=== PATIENT | male | born 1965 | race Caucasian/White ===

== ENCOUNTER 2020-10-02 15:40 | Inpatient (IN) | payer BC, OTHER ==
[~2020-10-02] VITALS: Ht 182.9 cm; Wt 68.5 kg
[~2020-10-02 15:40] MED LIST: EZET10TA PO; GLYB5TAB7 PO; JANUVIA; METF-379 PO
[2020-10-02 15:49] VITALS: BP_SYST 194
[2020-10-02] MEDS ORDERED: MAG-AL HYDROX/SIMETH 30 ML UDC PO ONE (16:15)
[2020-10-02] MEDS ORDERED: LORazepam 1 MG TABLET PO ONE (16:15)
[2020-10-02] MEDS ORDERED: PANTOPRAZOLE SODIUM 40 MG/VIAL (PROTONIX) IVP ONE ×2 (16:15→19:00)
[2020-10-02] MEDS ORDERED: NACL 0.9% 1,000 ML IV ONE ×2 (16:30→17:30)
[2020-10-02 16:46] LABS: BASOPHILS % (AUTO) 0.3 % (0.0-2.0); HEMATOCRIT 52.6 % (36-54); HEMOGLOBIN 17.5 g/dL (14.0-18.0); LYMPHOCYTES # (AUTO) 1.1 K/uL (1.0-5.5); LYMPHOCYTES % (AUTO) 6.7 % (20.5-51.5); MEAN CORPUSCULAR HEMOGLOBIN 31 pg (27-31); MEAN CORPUSCULAR HGB CONC 33 % (32-36); MEAN CORPUSCULAR VOLUME 94 fL (79.0-98.0); MONOCYTES # (AUTO) 1.1 K/uL (0.0-1.0); MONOCYTES % (AUTO) 7.1 % (1.7-9.3); NEUTROPHILS # (AUTO) 13.6 K/uL (1.8-7.7); NEUTROPHILS % (AUTO) 85.9 % (40.0-70.0); PLATELET COUNT (AUTO) 361 K/uL (130-430); RED CELL DISTRIBUTION WIDTH 12.6 % (9.0-15.0); WHITE BLOOD COUNT (AUTO) 15.9 K/uL (4.8-10.8)
[2020-10-02 17:02] LABS: ANION GAP 30 (5-15); CALCIUM 9.7 mg/dL (8.4-11.0); CHLORIDE 94 mmol/L (98-107); CREATININE 1.53 mg/dL (0.55-1.30); GLUCOSE 214 mg/dL (70-99); POTASSIUM 5.4 mmol/L (3.5-5.1); SODIUM SERUM 133 mmol/L (136-145); UREA NITROGEN, BLOOD 20 mg/dL (8-21)
[2020-10-02 17:04] LABS: INR 0.9 (0.80-1.20); PROTHROMBIN TIME 9.5 SECS (9.5-12.5)
[2020-10-02 17:08] LABS: ALANINE AMINOTRANSFERASE 26 U/L (12-78); ALBUMIN 4.9 g/dL (3.4-4.8); ASPARTATE AMINOTRANSFERASE 11 U/L (10-37); TOTAL BILIRUBIN 0.8 mg/dL (0.0-1.0)
[2020-10-02 17:18] LABS: GFR AFRICAN AMERICAN 62 mL/min (>90)
[2020-10-02 17:21] LABS: C-REACTIVE PROTEIN QUANT < 0.2 mg/dL (0-0.5)
[2020-10-02] MEDS ORDERED: INSULIN REGULAR, HUMAN 10 UNITS/0.1 ML INJ IVP ONE (17:30)
[2020-10-02] MEDS ORDERED: CANA1TAB4 PO (17:30)
[2020-10-02] MEDS ORDERED: INSULIN REGULAR, HUMAN 100 UNITS in NS 99 ML IV ONE ×2 (18:15)
[2020-10-02] MEDS ORDERED: NACL 0.9% 1,000 ML IV SCH (18:15)
[2020-10-02] MEDS ORDERED: LORazepam 2 MG/ML VIAL IVP PRN (18:45)
[2020-10-02] MEDS ORDERED: DEXTROSE 50% JECT 50 ML DISP.SYRIN IVP PRN (18:45)
[2020-10-02] MEDS ORDERED: FOLIC ACID 1 MG, THIAMINE HCL 100 MG, MAGNESIUM SULFATE 1 GM, MVI 10 ML in NACL 0.9% 1,... IV ONE (18:45)
[2020-10-02] MEDS ORDERED: INSULIN REGULAR, HUMAN 100 UNITS in NS 99 ML IV PRN ×2 (18:45)
[2020-10-02 18:48] LABS: ACETONE, SERUM SMALL (NEGATIVE)
[2020-10-02] MEDS ORDERED: THIAMINE HCL 100 MG, MAGNESIUM SULFATE 1 GM in NS 100 ML IV ONE (19:00)
[2020-10-02] MEDS ORDERED: FOLIC ACID 1 MG, MVI 10 ML in NACL 0.9% 1,000 ML IV ONE (19:00)
[2020-10-02 19:49] LABS: BARBITURATE, URINE NEGATIVE (NEG <=200); BENZODIAZEPINE, URINE NEGATIVE (NEG <=150); CANNABINOID, URINE POSITIVE (NEG <=50); COCAINE, URINE NEGATIVE (NEG <=150); METHAMPHETAMINES SCREEN,URINE NEGATIVE (NEG <=500); OPIATE, URINE NEGATIVE (NEG <=100); PHENCYCLIDINE SCREEN,URINE NEGATIVE (NEG <=25); UR TRICYCLIC ANTIDEPRESSANTS NEGATIVE (NEG <=300); URINE AMPHETAMINE NEGATIVE (NEG <=500); URINE METHADONE NEGATIVE (NEG <=200); URINE OXYCODONE SCREEN NEGATIVE (NEG <=100); URINE PROPOXYPHENE SCREEN NEGATIVE (NEG <=300)
[2020-10-02 19:55] VITALS: BP_SYST 155
[2020-10-02 20:00] VITALS: BP_SYST 155
[2020-10-02 21:00] VITALS: BP_SYST 154
[2020-10-02] MEDS ORDERED: cefTRIAXone 1 GM IVPB PREMIX 50 ML IV ONE (21:43)
[2020-10-02 22:00] VITALS: BP_SYST 147
[2020-10-02 22:24] LABS: CALCIUM 7.2 mg/dL (8.4-11.0); CREATININE 1.19 mg/dL (0.55-1.30); POTASSIUM 4.8 mmol/L (3.5-5.1)
[2020-10-02] MEDS: cefTRIAXone 1 GM in D5W 50 ML IV SCH (22:29)
[2020-10-02 23:00] VITALS: BP_SYST 140
[2020-10-03] VITALS (16 sets, daily range): BP systolic 109–138
[2020-10-03] MEDS: SODIUM BICARBONATE 650 MG TABLET PO SCH ×5 (00:09→20:38)
[2020-10-03] MEDS: D5LR 1,000 ML IV SCH ×3 (00:58→13:46)
[2020-10-03] MEDS: INSULIN REGULAR, HUMAN 100 UNITS/ML, 10 ML VIAL (humuLIN R) SUBCUT PRN ×5 (03:09→18:15)
[2020-10-03 05:56] LABS: ALBUMIN 3.4 g/dL (3.4-4.8); BASOPHILS % (AUTO) 0.2 % (0.0-2.0); CALCIUM 7.8 mg/dL (8.4-11.0); CREATININE 1.12 mg/dL (0.55-1.30); EOSINOPHILS % (AUTO) 0.4 % (0.0-4.0); HEMATOCRIT 40.7 % (36-54); HEMOGLOBIN 13.8 g/dL (14.0-18.0); LYMPHOCYTES # (AUTO) 2.3 K/uL (1.0-5.5); LYMPHOCYTES % (AUTO) 23.2 % (20.5-51.5); MEAN CORPUSCULAR HEMOGLOBIN 31 pg (27-31); MEAN CORPUSCULAR HGB CONC 34 % (32-36); MEAN CORPUSCULAR VOLUME 92 fL (79.0-98.0); MONOCYTES # (AUTO) 1.3 K/uL (0.0-1.0); MONOCYTES % (AUTO) 13.5 % (1.7-9.3); NEUTROPHILS # (AUTO) 6.3 K/uL (1.8-7.7); NEUTROPHILS % (AUTO) 62.7 % (40.0-70.0); PHOSPHORUS 1.5 mg/dL (2.7-4.5); PLATELET COUNT (AUTO) 232 K/uL (130-430); POTASSIUM 3.8 mmol/L (3.5-5.1); RED BLOOD CELL COUNT(AUTO) 4.44 MIL/uL (4.2-6.2); RED CELL DISTRIBUTION WIDTH 12.5 % (9.0-15.0); TOTAL BILIRUBIN 0.9 mg/dL (0.0-1.0)
[2020-10-03] MEDS: THIAMINE HCL 100 MG TABLET PO SCH (08:20)
[2020-10-03] MEDS: PANTOPRAZOLE SODIUM 40 MG/VIAL (PROTONIX) IVP SCH ×2 (08:20→20:37)
[2020-10-03] MEDS: FOLIC ACID 1 MG TABLET PO SCH (08:20)
[2020-10-03] MEDS ORDERED: SODIUM BICARBONATE 650 MG TABLET PO ONE (09:45)
[2020-10-03] MEDS ORDERED: cefTRIAXone 1 GM VIAL ONE (20:17)
[2020-10-03] MEDS: cefTRIAXone 1 GM in D5W 50 ML IV SCH (20:39)
[2020-10-04 00:05] VITALS: BP_SYST 127
[2020-10-04] MEDS: D5LR 1,000 ML IV SCH (05:34)
[2020-10-04 06:27] LABS: ALBUMIN 3.1 g/dL (3.4-4.8); BASOPHILS % (AUTO) 0.2 % (0.0-2.0); CALCIUM 7.9 mg/dL (8.4-11.0); CREATININE 0.85 mg/dL (0.55-1.30); EOSINOPHILS # (AUTO) 0.2 K/uL (0.0-0.4); EOSINOPHILS % (AUTO) 2.4 % (0.0-4.0); HEMATOCRIT 38.3 % (36-54); HEMOGLOBIN 13.1 g/dL (14.0-18.0); LYMPHOCYTES # (AUTO) 2.1 K/uL (1.0-5.5); LYMPHOCYTES % (AUTO) 30.3 % (20.5-51.5); MEAN CORPUSCULAR HEMOGLOBIN 31 pg (27-31); MEAN CORPUSCULAR HGB CONC 34 % (32-36); MEAN CORPUSCULAR VOLUME 91 fL (79.0-98.0); MONOCYTES # (AUTO) 0.8 K/uL (0.0-1.0); MONOCYTES % (AUTO) 11.2 % (1.7-9.3); NEUTROPHILS # (AUTO) 3.8 K/uL (1.8-7.7); NEUTROPHILS % (AUTO) 55.9 % (40.0-70.0); PHOSPHORUS 1.6 mg/dL (2.7-4.5); PLATELET COUNT (AUTO) 203 K/uL (130-430); POTASSIUM 3.2 mmol/L (3.5-5.1); RED BLOOD CELL COUNT(AUTO) 4.23 MIL/uL (4.2-6.2); RED CELL DISTRIBUTION WIDTH 12.2 % (9.0-15.0); TOTAL BILIRUBIN 0.8 mg/dL (0.0-1.0); WHITE BLOOD COUNT (AUTO) 6.8 K/uL (4.8-10.8)
[2020-10-04 08:00] VITALS: BP_SYST 140
[2020-10-04] MEDS: SODIUM BICARBONATE 650 MG TABLET PO SCH (09:20)
[2020-10-04] MEDS: PANTOPRAZOLE SODIUM 40 MG/VIAL (PROTONIX) IVP SCH (09:21)
[2020-10-04] MEDS: FOLIC ACID 1 MG TABLET PO SCH (09:21)
[2020-10-04] MEDS: THIAMINE HCL 100 MG TABLET PO SCH (09:31)
[2020-10-04] MEDS ORDERED: NATEGLINIDE 120 MG TABLET PO SCH (11:30)
[2020-10-04] MEDS ORDERED: NATEGLINIDE 60 MG TABLET PO SCH (11:30)
[2020-10-04] MEDS ORDERED: FOLI-43 PO (11:41)
[2020-10-04] MEDS ORDERED: THIA50TA10 PO (11:41)
[2020-10-04] MEDS ORDERED: STA60 PO (11:43)
[2020-10-04] MEDS ORDERED: POTASSIUM CHLORIDE 20 MEQ TAB.PRT.SR PO ONE (11:45)
[2020-10-04 12:00] VITALS: BP_SYST 142
[2020-10-04] MEDS ORDERED: NATEGLINIDE 120 MG TABLET ONE (12:05)
[2020-10-04] MEDS ORDERED: PRO40 PO (12:48)
== END 2020-10-04 15:45 | disposition home or self-care (01) | DRG 637 ==
LOC: SED 15:40 → SIC 18:12 → STU 10-03 16:15
PROVIDERS: ADMIT Internal Medicine; ATTEND Internal Medicine
DX: E11.10 Type 2 diabetes mellitus with ketoacidosis without coma (principal); N17.0 Acute kidney failure with tubular necrosis; E87.2 Acidosis; R65.10 Systemic inflammatory response syndrome (SIRS) of non-infectious origin without acute organ dysfunction; E44.1 Mild protein-calorie malnutrition; Z20.822 Contact with and (suspected) exposure to COVID-19; F12.90 Cannabis use, unspecified, uncomplicated; F32.9 Major depressive disorder, single episode, unspecified; F10.20 Alcohol dependence, uncomplicated; E87.6 Hypokalemia; F43.23 Adjustment disorder with mixed anxiety and depressed mood; Z79.899 Other long term (current) drug therapy; Z81.8 Family history of other mental and behavioral disorders; Z68.20 Body mass index [BMI] 20.0-20.9, adult
CPT/HCPCS: 36415; 36600; 71045; 80048; 80053; 80307; 82009; 82140; 82550; 82803-TC; 82962; 83605; 83735; 83880; 84100; 84484; 85025; 85379; 85610-TC; 85730-TC; 86140; 86403; 87040-TC; 87081; 93005; 96374; 96375; 99285; C9113; G0378; J0696; J1815; J3411; J3475; J3490; J7030; J7120

== ENCOUNTER 2021-04-26 09:48 | Inpatient (IN) | payer OTHER, SELFPAY ==
[~2021-04-26] VITALS: Ht 180.3 cm; Wt 75.7 kg
[~2021-04-26 09:48] MED LIST changes: -EZET10TA PO; +FOLI-43 PO; -GLYB5TAB7 PO; -JANUVIA; -METF-379 PO; +PRO40 PO; +STA60 PO; +THIA50TA10 PO
[2021-04-26 10:06] VITALS: BP_SYST 157
--- NOTE | 2021-04-26 10:09 | NUR ---
Placed in room 4 . Placed on groundwater monitoring technician, blood pressure machine and pulse oximeter. To gown for exam. Side rails up.
[2021-04-26] MEDS ORDERED: NACL 0.9% 1,000 ML IV ONE (10:30)
[2021-04-26] MEDS ORDERED: ASPIRIN 81 MG TAB.CHEW PO ONE (10:30)
[2021-04-26] MEDS ORDERED: KETOROLAC TROMETHAMINE 30 MG VIAL IVP ONE (10:30)
--- NOTE | 2021-04-26 10:52 | NUR ---
Blood collected and sent to lab.
[2021-04-26 11:01] LABS: BASOPHILS # (AUTO) 0.1 K/uL (0.0-0.2); BASOPHILS % (AUTO) 0.7 % (0.0-2.0); EOSINOPHILS # (AUTO) 0.1 K/uL (0.0-0.4); EOSINOPHILS % (AUTO) 1.7 % (0.0-4.0); LYMPHOCYTES # (AUTO) 2.4 K/uL (1.0-5.5); LYMPHOCYTES % (AUTO) 29.7 % (20.5-51.5); MEAN CORPUSCULAR HEMOGLOBIN 30 pg (27-31); MEAN CORPUSCULAR HGB CONC 35 % (32-36); MEAN CORPUSCULAR VOLUME 86 fL (79.0-98.0); MONOCYTES # (AUTO) 0.6 K/uL (0.0-1.0); MONOCYTES % (AUTO) 8.1 % (1.7-9.3); NEUTROPHILS # (AUTO) 4.8 K/uL (1.8-7.7); NEUTROPHILS % (AUTO) 59.8 % (40.0-70.0); PLATELET COUNT (AUTO) 257 K/uL (130-430); RED BLOOD CELL COUNT(AUTO) 5.03 MIL/uL (4.2-6.2); RED CELL DISTRIBUTION WIDTH 13.2 % (9.0-15.0)
--- NOTE | 2021-04-26 12:13 | NUR ---
patient states pain free ambulates with steady gait to BR
[2021-04-26 13:13] LABS: CALCIUM 9.9 mg/dL (8.4-11.0); CREATININE 0.74 mg/dL (0.55-1.30); POTASSIUM 3.5 mmol/L (3.5-5.1)
[2021-04-26 13:20] LABS: ALBUMIN 4.7 g/dL (3.4-4.8); TOTAL BILIRUBIN 0.6 mg/dL (0.0-1.0)
[2021-04-26] MEDS ORDERED: ASPIRIN 325 MG TABLET PO ONE (13:30)
[2021-04-26] MEDS ORDERED: EMPA10TA PO (13:33)
[2021-04-26] MEDS ORDERED: TRI48 PO (13:33)
[2021-04-26] MEDS ORDERED: LEVO2.5S4 PO (13:33)
--- NOTE | 2021-04-26 13:38 | NUR ---
PT AWARE OF BEING ADMITTED. PAIN FREE SR NO ECTOPY. VSS
--- NOTE | 2021-04-26 13:39 | NUR ---
Covid19 nasal swab performed at bedside, specimen sent to lab
--- NOTE | 2021-04-26 13:45 | NUR ---
ADMIT ORDERS RECEIVED FROM DR SIERRA.
--- NOTE | 2021-04-26 14:20 | NUR ---
CALLED FOR BED ASSIGNMENT
--- NOTE | 2021-04-26 14:28 | NUR ---
pt voices no complaints eating lunch
--- NOTE | 2021-04-26 15:00 | NUR ---
BED ASSIGNMENT RECEIVED.
[2021-04-26] MEDS ORDERED: DEXTROSE 50% JECT 50 ML DISP.SYRIN IVP PRN (15:30)
[2021-04-26] MEDS ORDERED: INSULIN REGULAR, HUMAN 100 UNITS/ML, 10 ML VIAL (humuLIN R) SUBCUT PRN (15:30)
--- NOTE | 2021-04-26 15:35 | NUR ---
DR SIERRA AT BEDSIDE
[2021-04-26] MEDS ORDERED: PANTOPRAZOLE SODIUM 40 MG TAB PO ONE (15:45)
--- NOTE | 2021-04-26 15:48 | NUR ---
PT TO ROOM 102 A VIA GURNEY AND COAL TRAM DRIVER WITH TECH REPORT AT BEDSIDE CABRERA PELAYO. PT STABLE STATES NO PAIN
[2021-04-26] MEDS ORDERED: NITROGLYCERIN 0.4 MG TAB.SUBL SL PRN (16:00)
[2021-04-26] MEDS ORDERED: ENOXAPARIN SODIUM 60 MG/0.6 ML SYRINGE SUBCUT ONE (16:00)
[2021-04-26 16:29] VITALS: BP_SYST 125
[2021-04-26] MEDS ORDERED: INSU300I SQ (18:24)
--- NOTE | 2021-04-26 18:50 | NUR ---
paged dr sierra to check if he wants to continue patient's med toujeo. Addendum: 04/26/21 at 1929 by Forest Perrin RN DR SIERRA OKAYED TO GIVE PT'S OWN MED TOUJEO. ENDORSED TO NIGHT NURSE.
--- NOTE | 2021-04-26 19:15 | NUR ---
OPENING NOTE REPORT RECEIVED FROM DAYSHIFT NURSE. PATIENT RECEIVED LYING IN BED, AWAKE, NO S/S OF ACUTE DISTRESS NOTED. BREATHING IS EVEN AND UNLABORED. IV SITE IS PATENT, NO SIGNS OF INFILTRATION OR INFECTION NOTED. SKIN WARM AND DRY TO TOUCH. NO S/S OF HYPOGLYCEMIA NOTED. CALL LIGHT WITH PATIENT. BED IS LOCKED AND AT LOWEST POSITION. WILL CONTINUE TO MONITOR.
[2021-04-26 20:00] VITALS: BP_SYST 109
[2021-04-26 20:21] LABS: INR 0.9 (0.80-1.20); PROTHROMBIN TIME 9.9 SECS (9.5-12.5)
[2021-04-26] MEDS ORDERED: INSULIN GLARGINE 100 UNITS/ML 10 ML VIAL SUBCUT SCH (21:00)
[2021-04-26] MEDS ORDERED: ENOXAPARIN SODIUM 60 MG/0.6 ML SYRINGE SUBCUT SCH (21:00)
--- NOTE | 2021-04-26 21:04 | NUR ---
CRITICAL LAB INFORMED DR. CORONA, TROP . NO NEW ORDERS GIVEN, TO SEE PATIENT IN THE MORNING.
[2021-04-26 21:48] LABS: BILIRUBIN,URINE NEGATIVE (NEGATIVE); BLOOD, URINE NEGATIVE (NEGATIVE); CLARITY/URINE CLEAR (CLEAR); COLOR,URINE YELLOW (YELLOW); GLUCOSE,URINE 3+ (NEGATIVE); KETONES,URINE NEGATIVE (NEGATIVE); LEUKOCYTE ESTERASE ,URINE NEGATIVE (NEGATIVE); NITRITE, URINE NEGATIVE (NEGATIVE); PROTEIN URINE NEGATIVE (NEGATIVE); UROBILINOGEN,URINE 0.2 (0.2-1.0)
[2021-04-27] VITALS: BP_SYST 112
--- NOTE | 2021-04-27 | NUR ---
ROUNDS PATIENT IN BED, SLEEPING. NO S/S OF ACUTE DISTRESS. BREATHING EVEN AND UNLABORED. CALL LIGHT WITH PATIENT. WILL CONTINUE TO MONITOR.
--- NOTE | 2021-04-27 06:00 | NUR ---
REFUSE INF SWAB PATIENT REFUSING INFLUENZA SWAB AT THIS TIME. REQUESTING TO HAVE IT DONE LATER. PATIENT STATES," I WANT TO SLEEP SOME MORE".
--- NOTE | 2021-04-27 06:34 | NUR ---
CLOSING NOTE PATIENT IN BED, SLEEPING. NO S/S OF ACUTE DISTRESS NOTED. BREATHING EVEN AND UNLABORED. IV SITE IS PATENT, NO SIGNS OF INFILTRATION OR INFECTION NOTED. SKIN WARM AND DRY TO TOUCH, NO S/S OF HYPOGLYCEMIA NOTED. ALL NEEDS MET THROUGHOUT SHIFT. FALL, SAFETY PRECAUTIONS MAINTAINED THROUGHOUT SHIFT. WILL CONTINUE TO MONITOR.
[2021-04-27 06:50] LABS: BASOPHILS # (AUTO) 0.1 K/uL (0.0-0.2); BASOPHILS % (AUTO) 0.9 % (0.0-2.0); EOSINOPHILS # (AUTO) 0.3 K/uL (0.0-0.4); EOSINOPHILS % (AUTO) 4.3 % (0.0-4.0); HEMATOCRIT 42.4 % (36-54); HEMOGLOBIN 14.5 g/dL (14.0-18.0); LYMPHOCYTES # (AUTO) 3.5 K/uL (1.0-5.5); LYMPHOCYTES % (AUTO) 49.5 % (20.5-51.5); MEAN CORPUSCULAR HEMOGLOBIN 29 pg (27-31); MEAN CORPUSCULAR HGB CONC 34 % (32-36); MEAN CORPUSCULAR VOLUME 86 fL (79.0-98.0); MONOCYTES # (AUTO) 0.5 K/uL (0.0-1.0); MONOCYTES % (AUTO) 6.7 % (1.7-9.3); NEUTROPHILS # (AUTO) 2.8 K/uL (1.8-7.7); NEUTROPHILS % (AUTO) 38.6 % (40.0-70.0); PLATELET COUNT (AUTO) 253 K/uL (130-430); RED BLOOD CELL COUNT(AUTO) 4.96 MIL/uL (4.2-6.2); RED CELL DISTRIBUTION WIDTH 13.5 % (9.0-15.0); WHITE BLOOD COUNT (AUTO) 7.2 K/uL (4.8-10.8)
[2021-04-27 08:00] VITALS: BP_SYST 111
--- NOTE | 2021-04-27 08:30 | NUR ---
CM: Faxed the transfer to higher level of care order and clinical info to [facility], admitting dept. S/w Jessica who will call back once has the cardiac cath technologist schedule and bed info. Addendum: 04/27/21 at 1404 by Rena Livingston RN 10 am: Per dr. Atkinson, he called housesup at [facility] and got bed [id number]. Pt is to transfer by 11am for the procedure at 1330. >> Booked ALS with [facility] to pick pack worker at 11am. -- LINWOOD patino, Dr Atkinson aware. Addendum: 04/27/21 at 1405 by Rena Livingston RN Disposition 02
[2021-04-27] MEDS ORDERED: ATORVASTATIN 20 MG TABLET PO SCH (09:00)
[2021-04-27] MEDS ORDERED: ASPIRIN 81 MG TAB.CHEW PO SCH (09:00)
[2021-04-27] MEDS ORDERED: PANTOPRAZOLE SODIUM 40 MG TAB PO SCH (09:00)
[2021-04-27] MEDS ORDERED: ENOXAPARIN SODIUM 80 MG/0.8 ML SYRINGE SUBCUT ONE (10:00)
[2021-04-27 10:09] LABS: CALCIUM 9.1 mg/dL (8.4-11.0); CREATININE 0.6 mg/dL (0.55-1.30); PHOSPHORUS 4.4 mg/dL (2.7-4.5); POTASSIUM 3.5 mmol/L (3.5-5.1); TOTAL BILIRUBIN 0.4 mg/dL (0.0-1.0)
[2021-04-27 11:08] VITALS: BP_SYST 111
[2021-04-27] MEDS ORDERED: ENOXAPARIN SODIUM 80 MG/0.8 ML SYRINGE SUBCUT SCH (21:00)
== END 2021-04-27 11:30 | disposition short-term general hospital (02) | DRG 281 ==
LOC: SED 09:48 → STU 13:43
PROVIDERS: ADMIT Internal Medicine; ATTEND Internal Medicine
DX: I21.4 Non-ST elevation (NSTEMI) myocardial infarction (principal); E87.1 Hypo-osmolality and hyponatremia; E11.9 Type 2 diabetes mellitus without complications; E78.5 Hyperlipidemia, unspecified; Z20.822 Contact with and (suspected) exposure to COVID-19; F12.90 Cannabis use, unspecified, uncomplicated; I10 Essential (primary) hypertension; Z82.49 Family history of ischemic heart disease and other diseases of the circulatory system; Z79.899 Other long term (current) drug therapy; Z87.891 Personal history of nicotine dependence; Z83.3 Family history of diabetes mellitus
CPT/HCPCS: 36415; 71045; 80053; 80061; 81003; 82962; 83735; 83880; 84100; 84484; 85025; 85379; 85610-TC; 85730-TC; 93005; 93306; 96361; 96374; 99285; G0378; J1650; J1815; J1885